=== PATIENT | female | born 1985 | race Caucasian/White ===

== ENCOUNTER 2017-12-07 10:08 | Inpatient (IN) ==
--- NOTE | 2017-12-07 11:17 | Emergency Department Note ---
Disposition Clinical Impression: Acute psychosis Disposition: Admitted As Inpatient Condition: Good Referrals: Kwaku Moore MD [Primary Care Provider] - Forms: ED Satisfaction Letter, Work/School Release Time of Disposition: 14:28 Psych HPI - General Chief Complaint: ED General Medical Stated Complaint: Possible Withdrawal Time Seen by Provider: 12/07/17 10:26 Source: EMS Mode of arrival: ambulatory Limitations: no limitations Nursing Notes Reviewed: Yes Vital Signs Reviewed: Yes - History of Present Illness HPI Narrative: 32-year-old female who apparently smoked meth she thinks but she is not sure. She did that 3 days ago she has been unable to sleep she is very paranoid. He is not appeared to be able to care for herself at this time. Pt complaint: other If medical clearance, reason: psychiatric condition (Paranoid) Onset (ago): day(s) Duration: constant Improves with: none Worsens with: none Context: recent drug abuse Alleged intoxication: No Associated Psychiatric Symptoms: racing thoughts, delusions, other Associated symptoms: Reports: denies other symptoms Traumatic symptoms: other Treatments prior to arrival: none - Related Data Previous Rx's Medication Instructions Recorded Azithromycin [Azithromycin 6-Tab 250 mg PO DAILY 5 Days tab 02/12/16 Pack] Fluticasone Propionate Nasal 2 spray NS DAILY 7 Days bottle 02/12/16 [Flonase] GuaiFENesin/Codeine [Robitussin 5 ml PO Q6HR PRN #120 ml 02/12/16 w/Codeine] Naproxen [Naprosyn] 500 mg PO BID 3 Days tablet 02/12/16 Azithromycin [Azithromycin 6-Tab 250 mg PO PER PKG DI #6 tab 08/01/16 Pack] Fluticasone Propionate Nasal 2 spray NS DAILY #1 bottle 08/01/16 [Flonase] cephALEXin [Keflex] 500 mg PO QID #28 capsule 04/23/17 Azithromycin [Azithromycin 6-Tab 250 mg PO PER PKG DI #6 tab 09/07/17 Pack] Allergies Allergy/AdvReac Type Severity Reaction Status Date / Time Penicillins [PCN] Allergy Rash Verified 02/12/16 12:13 All systems ED: reviewed and negative except as stated. Constitutional: Denies: fever, chills, weakness, weight change Eyes: Denies: eye pain, eye discharge, vision change ENT ED: Denies: ear pain, throat pain, dental pain, hearing loss, epistaxis, congestion, dysphagia Cardiovascular: Denies: chest pain, palpitations, dyspnea on exertion, edema, syncope Respiratory: Denies: cough, dyspnea, wheezes, hemoptysis, stridor Gastrointestinal: Denies: abdominal pain, nausea, vomiting, diarrhea, constipation, hematemesis, melena, hematochezia Genitourinary: Denies: dysuria, frequency, hematuria, discharge Musculoskeletal: Denies: back pain, neck pain, arthralgia, myalgia Integumentary: Denies: rash, abrasion, lesions Neurological: Denies: headache, weakness, numbness, paresthesias, confusion, abnormal gait, vertigo Psychiatric: Denies: anxiety, depression, suicidal thoughts, homicidal thoughts , auditory hallucinations, visual hallucinations Endocrine: Denies: fatigue Hematological/Lymphatic: Denies: easy bleeding, easy bruising Allergic/Immunologic: Denies: facial swelling, urticaria Past Medical History - Past Medical History Medical history: Reports: no medical history Psychiatric history: Reports: anxiety, panic disorder - Social History Smoking Status: Former smoker Smokeless Tobacco Status: No Alcohol use: Reports: rarely Drug use: Reports: methamphetamine Physical Exam - General Limitations: altered mental status General appearance: alert, in no apparent distress - Head Head exam: atraumatic, normocephalic, normal inspection - Eye Eye exam: Present: normal appearance, PERRL, EOMI - ENT ENT exam: normal exam, normal oropharynx, mucous membranes moist - Neck Neck exam: Present: normal inspection, full ROM, trachea midline - Chest Chest inspection: Present: normal inspection, symmetric chest wall rise - Respiratory Respiratory exam: Present: normal lung sounds bilaterally - Cardiovascular Cardiovascular exam: Present: regular rate, normal rhythm, normal heart sounds - Abdominal Exam Abdominal exam: Present: soft, Non-Tender. Absent: tenderness, distention, guarding, rebound, rigidity - Extremities Exam Extremities exam: Present: normal inspection, full ROM. Absent: tenderness, pedal edema - Expanded Lower Extremity Exam Neurovascular/Tendon exam: Absent: motor deficit, sensory deficit, tendon deficit Gait: observed and normal - Back Exam Back exam: Present: normal inspection, full ROM. Absent: tenderness - Neurological Exam Neurological exam: Present: alert, oriented X3 - Psychiatric Psychiatric exam: Present: agitated, anxious, other (Paranoid) - Skin Skin exam: Present: warm, dry, intact, normal color Course - Consultations Consultation #1: The patient will be admitted per1A Time: 14:28 Vital Signs Temperature 98.0 F 12/07/17 10:09 Pulse Rate 89 12/07/17 10:09 Respiratory Rate 20 12/07/17 10:09 Blood Pressure 135/94 12/07/17 10:09 O2 Sat by Pulse Oximetry 97 12/07/17 10:09 Temperature 98.0 F 12/07/17 10:09 Pulse Rate 89 12/07/17 10:09 Respiratory Rate 20 12/07/17 10:09 Blood Pressure 135/94 12/07/17 10:09 O2 Sat by Pulse Oximetry 97 12/07/17 10:09 Oxygen Delivery Oxygen Delivery Room Air Psych - Lab Data Result diagrams: 12/07/17 11:37 12/07/17 11:37 Lab Results 12/07/17 12/07/17 12/07/17 Range/Units 11:17 11:17 11:17 WBC (4.3-11.1) K/mcL RBC (3.82-4.97) M/mcL Hgb (11.5-15.4) g/dL Hct (35.3-44.9) % MCV (83.0-100.0) fL MCH (28.0-33.3) pg MCHC (31.6-35.5) g/dL RDW (11.5-14.5) % Plt Count (140-400) K/mcL MPV (9.4-12.4) fL Immature Gran % (0-4) % Seg Neutrophils % % Lymphocytes % % Monocytes % % Eosinophils % % Basophils % % Neutrophils # (1.6-8.9) K/mcL Lymphocytes # (0.6-4.6) K/mcL Monocytes # (0.0-1.3) K/mcL Eosinophils # (0.0-0.6) K/mcL Basophils # (0.0-0.2) K/mcL Sodium (136-145) mEq/L Potassium (3.5-5.1) mEq/L Chloride (98-107) mEq/L Carbon Dioxide (23-29) mEq/L BUN (6-20) mg/dL Creatinine (0.60-1.20) mg/dL Est GFR ( Amer) (> 60) Est GFR (Non-Af Amer) (> 60) BUN/Creatinine Ratio (6-26) Glucose (70-105) mg/dL Calculated Osmolality (280-300) Calcium (8.6-10.3) mg/dL Ur Specimen Adequacy See below A Urine Color Yellow (Yellow) Urine Clarity Cloudy A (Clear) Urine pH 6.5 (5.0-8.0) pH Units Ur Specific [place] 1.010 (1.010-1.025) Urine Protein Negative (Neg-Trace) mg/dL Urine Glucose (UA) Normal (Normal) mg/dL Urine Ketones Negative (Negative) mg/dL Urine Blood Small H (Negative) Urine Nitrite Negative (Negative) Urine Bilirubin Negative (Negative) Urine Urobilinogen Normal (Normal) mg/dL Ur Leukocyte Esterase Large H (Negative) Urine Microscopic RBC 0-3 (0-3) per hpf Urine Microscopic WBC 15-30 H (0-3) per hpf Ur Squamous Epith Cells Moderate H (None-Few) per lpf Urine Bacteria Many H (None-Few) per hpf Urine Test Negative (Negative) Salicylates (15.0-30.0) mg/dL Urine Opiates Screen Negative (Wucdkq=466) ng/mL Acetaminophen (10-30) mcg/mL Ur Barbiturates Screen Negative (Hvpecw=507) ng/mL Ur Phencyclidine Scrn Negative (Cutoff=25) ng/mL Ur Amphetamines Screen Negative (Uelnrv=0752) ng/mL U Benzodiazepines Scrn Negative (Pdowry=274) ng/mL Urine Cocaine Screen Negative (Cutoff= 300) ng/mL U Marijuana (THC) Screen Negative (Cutoff = 50) ng/mL Ethyl Alcohol (0-10) mg/dL 18 12/07/17 Range/Units 11:37 11:37 WBC 8.2 (4.3-11.1) K/mcL RBC 5.04 H (3.82-4.97) M/mcL Hgb 14.8 (11.5-15.4) g/dL Hct 42.4 (35.3-44.9) % MCV 84.1 (83.0-100.0) fL MCH 29.4 (28.0-33.3) pg MCHC 34.9 (31.6-35.5) g/dL RDW 12.3 (11.5-14.5) % Plt Count 309 (140-400) K/mcL MPV 10.9 (9.4-12.4) fL Immature Gran % 0.2 (0-4) % Seg Neutrophils % 68.7 % Lymphocytes % 22.9 % Monocytes % 6.7 % Eosinophils % 1.1 % Basophils % 0.4 % Neutrophils # 5.6 (1.6-8.9) K/mcL Lymphocytes # 1.9 (0.6-4.6) K/mcL Monocytes # 0.6 (0.0-1.3) K/mcL Eosinophils # 0.1 (0.0-0.6) K/mcL Basophils # 0.0 (0.0-0.2) K/mcL Sodium 136 (136-145) mEq/L Potassium 3.2 L (3.5-5.1) mEq/L Chloride 105 (98-107) mEq/L Carbon Dioxide 21 L (23-29) mEq/L BUN 8 (6-20) mg/dL Creatinine 0.85 (0.60-1.20) mg/dL Est GFR ( Amer) > 60 (> 60) Est GFR (Non-Af Amer) > 60 (> 60) BUN/Creatinine Ratio 9 (6-26) Glucose 92 (70-105) mg/dL Calculated Osmolality 280 (280-300) Calcium 9.9 (8.6-10.3) mg/dL Ur Specimen Adequacy Urine Color (Yellow) Urine Clarity (Clear) Urine pH (5.0-8.0) pH Units Ur Specific [place] (1.010-1.025) Urine Protein (Neg-Trace) mg/dL Urine Glucose (UA) (Normal) mg/dL Urine Ketones (Negative) mg/dL Urine Blood (Negative) Urine Nitrite (Negative) Urine Bilirubin (Negative) Urine Urobilinogen (Normal) mg/dL Ur Leukocyte Esterase (Negative) Urine Microscopic RBC (0-3) per hpf Urine Microscopic WBC (0-3) per hpf Ur Squamous Epith Cells (None-Few) per lpf Urine Bacteria (None-Few) per hpf Urine Test (Negative) Salicylates < 5.0 L (15.0-30.0) mg/dL Urine Opiates Screen (Dyorgf=145) ng/mL Acetaminophen < 1.0 L (10-30) mcg/mL Ur Barbiturates Screen (Zawrqo=666) ng/mL Ur Phencyclidine Scrn (Cutoff=25) ng/mL Ur Amphetamines Screen (Qlqidv=3036) ng/mL U Benzodiazepines Scrn (Jfahza=204) ng/mL Urine Cocaine Screen (Cutoff= 300) ng/mL U Marijuana (THC) Screen (Cutoff = 50) ng/mL Ethyl Alcohol < 10 (0-10) mg/dL Psychiatric Medical Clearance - Medical Clearance Checklist Medical History: Upper respiratory infection (Acute) Anxiety (Acute) Acute streptococcal pharyngitis (Inactive) Anxiety attack (Inactive) Fever (Inactive) GERD (gastroesophageal reflux disease) (Inactive) Lymphadenopathy (Inactive) Sinusitis (Inactive) Sinusitis (Inactive) Stress and adjustment reaction (Inactive) No Social History Section defined Current Vitals: Last Vital Signs Temp 98.0 F 12/07/17 10:09 Pulse 89 12/07/17 10:09 Resp 20 12/07/17 10:09 BP 135/94 12/07/17 10:09 Pulse Ox 97 12/07/17 10:09 Psychiatric Lab Panel: Drug Levels and Toxicity 12/07/17 12/07/17 11:17 11:37 Urine Opiates Screen Negative Acetaminophen < 1.0 L Ur Barbiturates Screen Negative Ur Phencyclidine Scrn Negative Ur Amphetamines Screen Negative U Benzodiazepines Scrn Negative Urine Cocaine Screen Negative U Marijuana (THC) Screen Negative Ethyl Alcohol < 10 Abnormal Labs: Abnormal lab results RBC 5.04 M/mcL (3.82-4.97) H 12/07/17 11:37 Potassium 3.2 mEq/L (3.5-5.1) L 12/07/17 11:37 Carbon Dioxide 21 mEq/L (23-29) L 12/07/17 11:37 Ur Specimen Adequacy See below A 12/07/17 11:17 Urine Clarity Cloudy (Clear) A 12/07/17 11:17 Urine Blood Small (Negative) H 12/07/17 11:17 Ur Leukocyte Esterase Large (Negative) H 12/07/17 11:17 Urine Microscopic WBC 15-30 per hpf (0-3) H 12/07/17 11:17 Ur Squamous Epith Cells Moderate per lpf (None-Few) H 12/07/17 11:17 Urine Bacteria Many per hpf (None-Few) H 12/07/17 11:17 Salicylates < 5.0 mg/dL (15.0-30.0) L 12/07/17 11:37 Acetaminophen < 1.0 mcg/mL (10-30) L 12/07/17 11:37 Statement of Medical Clearance: I have evaluated the patient, reviewed diagnostic information, and certify that the patient's medical condition is sufficiently stable that transfer to the psychiatric unit does not pose a significant risk of deterioration.
[2017-12-07 11:44] LABS: Bilirubin,Urine Negative (Negative); Blood,Urine Small (Negative); Clarity,Urine Cloudy (Clear); Color,Urine Yellow (Yellow); Glucose,Urine (UA) Normal (Normal); Ketones,Urine Negative (Negative); Leukocyte Esterase,Urine Large (Negative); Nitrite,Urine Negative (Negative); PH,Urine 6.5 pH Units (5.0-8.0); Protein,Urine Negative (Neg-Trace); Urobilinogen,Urine Normal (Normal)
[2017-12-07 11:46] LABS: Amphetamine Screen,Urine Negative ng/mL (Cutoff=1000); Barbiturate Screen,Urine Negative ng/mL (Cutoff=200); Benzodiazepines Screen,Urine Negative ng/mL (Cutoff=200); Cannabinoid Screen,Urine Negative ng/mL (Cutoff = 50); Cocaine Screen,Urine Negative ng/mL (Cutoff= 300); Opiate Screen,Urine Negative ng/mL (Cutoff=300); Phencyclidine Screen,Urine Negative ng/mL (Cutoff=25)
[2017-12-07 11:50] LABS: Basophils % 0.4 %; Eosinophils # 0.1 K/mcL (0.0-0.6); Eosinophils % 1.1 %; Hematocrit 42.4 % (35.3-44.9); Hemoglobin 14.8 g/dL (11.5-15.4); Immature Granulocytes % 0.2 % (0-4); Lymphocytes # 1.9 K/mcL (0.6-4.6); Lymphocytes % 22.9 %; Mean Corpuscular HGB Conc 34.9 g/dL (31.6-35.5); Mean Corpuscular Hemoglobin 29.4 pg (28.0-33.3); Mean Corpuscular Volume 84.1 fL (83.0-100.0); Mean Platelet Volume 10.9 fL (9.4-12.4); Monocytes # 0.6 K/mcL (0.0-1.3); Monocytes % 6.7 %; Neutrophils # 5.6 K/mcL (1.6-8.9); Platelet Count 309 K/mcL (140-400); Red Blood Count 5.04 M/mcL (3.82-4.97); Red Cell Distribution Width 12.3 % (11.5-14.5); Segmented Neutrophils % 68.7 %
[2017-12-07 11:59] LABS: RBC,Urine 0-3 per hpf (0-3); WBC,Urine 15-30 per hpf (0-3)
[2017-12-07 12:00] LABS: Bacteria,Urine Many per hpf (None-Few); Squamous Epithelial Cell,Urine Moderate per lpf (None-Few)
[2017-12-07 12:06] LABS: Acetaminophen < 1.0 mcg/mL (10-30); Ethanol < 10 mg/dL (0-10); Salicylate < 5.0 mg/dL (15.0-30.0)
[2017-12-07 12:09] LABS: BUN/Creatinine Ratio 9 (6-26); Blood Urea Nitrogen 8 mg/dL (6-20); Calcium 9.9 mg/dL (8.6-10.3); Carbon Dioxide 21 mEq/L (23-29); Chloride 105 mEq/L (98-107); Glucose 92 mg/dL (70-105); Osmolality,Calculated 280 (280-300); Potassium 3.2 mEq/L (3.5-5.1); Sodium 136 mEq/L (136-145); eGFR For African Americans > 60 (> 60); eGFR For Non-African Americans > 60 (> 60)
[2017-12-07] MEDS ORDERED: *HR* LORazepam 1 MG TABLET PO PRN (15:36)
[2017-12-07] MEDS ORDERED: Mag Hydrox/Al Hydrox/Simeth 30 ML UDC PO PRN (15:36)
[2017-12-07] MEDS ORDERED: *HR* LORazepam 2 MG/ML VIAL IM PRN (15:36)
[2017-12-07] MEDS ORDERED: MOM Conc 10 ML UD.LIQ PO PRN (15:36)
[2017-12-07] MEDS ORDERED: Haloperidol Lactate 5 MG/ML VIAL IM PRN (15:36)
[2017-12-07] MEDS ORDERED: Ibuprofen 400 MG TABLET PO PRN (15:36)
[2017-12-07] MEDS: hydrOXYzine pamoate 25 MG CAPSULE PO PRN (22:00)
[2017-12-07] MEDS: traZODone 50 MG TABLET PO PRN (22:00)
--- NOTE | 2017-12-08 12:21 | Psychiatry History & Physical ---
Date of Encounter: 12/08/17 Time of Encounter: 12:17 History of Present Illness Patient Stated Chief Complaint: psychosis Medicare Admission Attestation: For traditional Medicare patients the provided hospital inpatient services are reasonable and necessary and in the case of services not specified as inpatient -only under 42 CFR 419.22 (n), that they are appropriately provided as inpatient services in accordance 42 CFR 412.3. For Critical Access Hospital the patient may reasonably be expected to be discharged or transferred to a hospital within 96 hours after admission to the Critical Access Hospital. Admitted From: Home Plans for Post Hospital Care: Home History of Present Illness: Ms. Espinoza is a 32 year old female who was admitted secondary to psychosis. Client states she did Meth for the first time on Wednesday and has been unable to sleep or think clearly since. Client does seem distressed. Tearful. States she has never felt like this before. Denies SI/HI/AH/VH but reports her mind is playing tricks on her. Delayed processing. Delayed responses to questions. Has a mental health history of RORY and PTSD from ten years ago. Managed as an outpatient but became addicted to Heroin and stopped treatment. No psych treatment in several years. Client states she is now off the Heroin. Does not know why she did the Meth. Client reports no physical health problems or medication allergies other than PCN. Will start Seroquel to help with psychosis and to help with sleep. Past Med Surg Social Fam HX - Past Medical History Medical history: no medical history - Past Psychiatric History Psychiatric history: Reports: anxiety, depression Family psychiatric history: Unknown Family History of Suicide: Unknown - Past Surgical History Surgical History: no surgical history - Social History Smoking Status: Former smoker Smokeless Tobacco Status: No Alcohol use: rarely Drug use: methamphetamine Medications & Allergies Citalopram [CeleXA] 20 mg PO DAILY 12/07/17 [History] 3 Allergy/AdvReac Type Severity Reaction Status Date / Time Penicillins [PCN] Allergy Rash Verified 02/12/16 12:13 Review of Systems Constitutional: Denies: fever, chills, weakness, weight change Eyes: Denies: eye pain, vision change Ears, Nose, Throat: Denies: ear pain, throat pain, dental pain, hearing loss, congestion Cardiovascular: Denies: chest pain, palpitations, dyspnea on exertion Respiratory: Denies: cough, dyspnea, wheezes Gastrointestinal: Denies: abdominal pain, nausea, vomiting, diarrhea, constipation Genitourinary male: Denies: urgency, dysuria, frequency, genital lesions Genitourinary female: Denies: urgency, dysuria, frequency, abnormal menses, dyspareunia Musculoskeletal: Denies: joint swelling, joint pain Integumentary: Denies: rash, lesions, pruritus Neurological: Denies: headache, weakness, numbness, memory loss Endocrine: Denies: fatigue, heat or cold intolerance Hematologic/Lymphatic: Denies: easy bruising, lymphadenopathy Allergic/Immunologic: Denies: urticaria, itchy eyes Mental Status Exam Patient orientation: Yes Person, Yes Time, Yes Place Level of alertness: Alert Patient appearance: Unkempt, Disheveled Behavior: anxious, tearful Psychomotor activity: Normal Eye contact: Minimal Contact Mood description: Anxious Affect description: congruent with mood, tearful Speech pattern: Delayed Speech volume: Normal Thought process: Thought Blocking Thought content: No Suicidal ideation, No Homicidal ideation, Yes Paranoid delusion Perceptual disturbances: Yes Reacting to internal stimuli, No Auditory hallucinations, No Visual hallucinations Attention span: Unable to Focus, Unable to Sustain Attention Memory description: Grossly Intact Patient reliability: Questionable Historian Intelligence estimate: Average Judgment: Limited Insight: Partial Exam - HEENT Head exam IM: Present: atraumatic Eye exam IM: Present: EOMI ENT exam IM: Present: mucous membranes moist - Neurological Neurological exam IM: Present: alert, oriented X3 - Respiratory Respiratory exam IM: Present: CTAB - GI/Abdominal GI/Abdominal exam IM: Present: normal bowel sounds - Extremities Extremities exam IM: Present: full ROM - Skin Skin exam IM: Present: normal color Results - Vital Signs Vital signs: Temp Pulse Resp BP Pulse Ox 97.4 F L 61 18 113/77 97 12/07/17 21:00 12/07/17 21:00 12/07/17 21:00 12/07/17 21:00 12/07/17 10:09 - Labs Labs: Laboratory Last Values WBC 8.2 K/mcL (4.3-11.1) 12/07/17 11:37 RBC 5.04 M/mcL (3.82-4.97) H 12/07/17 11:37 Hgb 14.8 g/dL (11.5-15.4) 12/07/17 11:37 Hct 42.4 % (35.3-44.9) 12/07/17 11:37 MCV 84.1 fL (83.0-100.0) 12/07/17 11:37 MCH 29.4 pg (28.0-33.3) 12/07/17 11:37 MCHC 34.9 g/dL (31.6-35.5) 12/07/17 11:37 RDW 12.3 % (11.5-14.5) 12/07/17 11:37 Plt Count 309 K/mcL (140-400) 12/07/17 11:37 MPV 10.9 fL (9.4-12.4) 12/07/17 11:37 Immature Gran % 0.2 % (0-4) 12/07/17 11:37 Seg Neutrophils % 68.7 % 12/07/17 11:37 Lymphocytes % 22.9 % 12/07/17 11:37 Monocytes % 6.7 % 12/07/17 11:37 Eosinophils % 1.1 % 12/07/17 11:37 Basophils % 0.4 % 12/07/17 11:37 Neutrophils # 5.6 K/mcL (1.6-8.9) 12/07/17 11:37 Lymphocytes # 1.9 K/mcL (0.6-4.6) 12/07/17 11:37 Monocytes # 0.6 K/mcL (0.0-1.3) 12/07/17 11:37 Eosinophils # 0.1 K/mcL (0.0-0.6) 12/07/17 11:37 Basophils # 0.0 K/mcL (0.0-0.2) 12/07/17 11:37 Sodium 136 mEq/L (136-145) 12/07/17 11:37 Potassium 3.2 mEq/L (3.5-5.1) L 12/07/17 11:37 Chloride 105 mEq/L (98-107) 12/07/17 11:37 Carbon Dioxide 21 mEq/L (23-29) L 12/07/17 11:37 BUN 8 mg/dL (6-20) 12/07/17 11:37 Creatinine 0.85 mg/dL (0.60-1.20) 12/07/17 11:37 Est GFR ( Amer) > 60 (> 60) 12/07/17 11:37 Est GFR (Non-Af Amer) > 60 (> 60) 12/07/17 11:37 BUN/Creatinine Ratio 9 (6-26) 12/07/17 11:37 Glucose 92 mg/dL (70-105) 12/07/17 11:37 Calculated Osmolality 280 (280-300) 12/07/17 11:37 Calcium 9.9 mg/dL (8.6-10.3) 12/07/17 11:37 Ur Specimen Adequacy See below A 12/07/17 11:17 Urine Color Yellow (Yellow) 12/07/17 11:17 Urine Clarity Cloudy (Clear) A 12/07/17 11:17 Urine pH 6.5 pH Units (5.0-8.0) 12/07/17 11:17 Ur Specific [place] 1.010 (1.010-1.025) 12/07/17 11:17 Urine Protein Negative mg/dL (Neg-Trace) 12/07/17 11:17 Urine Glucose (UA) Normal mg/dL (Normal) 12/07/17 11:17 Urine Ketones Negative mg/dL (Negative) 12/07/17 11:17 Urine Blood Small (Negative) H 12/07/17 11:17 Urine Nitrite Negative (Negative) 12/07/17 11:17 Urine Bilirubin Negative (Negative) 12/07/17 11:17 Urine Urobilinogen Normal mg/dL (Normal) 12/07/17 11:17 Ur Leukocyte Esterase Large (Negative) H 12/07/17 11:17 Urine Microscopic RBC 0-3 per hpf (0-3) 12/07/17 11:17 Urine Microscopic WBC 15-30 per hpf (0-3) H 12/07/17 11:17 Ur Squamous Epith Cells Moderate per lpf (None-Few) H 12/07/17 11:17 Urine Bacteria Many per hpf (None-Few) H 12/07/17 11:17 Urine Test Negative (Negative) 12/07/17 11:17 Salicylates < 5.0 mg/dL (15.0-30.0) L 12/07/17 11:37 Urine Opiates Screen Negative ng/mL (Bnunlv=703) 12/07/17 11:17 Acetaminophen < 1.0 mcg/mL (10-30) L 12/07/17 11:37 Ur Barbiturates Screen Negative ng/mL (Evgouo=103) 12/07/17 11:17 Ur Phencyclidine Scrn Negative ng/mL (Cutoff=25) 12/07/17 11:17 Ur Amphetamines Screen Negative ng/mL (Chmgih=0511) 12/07/17 11:17 U Benzodiazepines Scrn Negative ng/mL (Rsopqe=858) 12/07/17 11:17 Urine Cocaine Screen Negative ng/mL (Cutoff= 300) 12/07/17 11:17 U Marijuana (THC) Screen Negative ng/mL (Cutoff = 50) 12/07/17 11:17 Ethyl Alcohol < 10 mg/dL (0-10) 12/07/17 11:37 Assessment and Plan (1) Acute psychosis Current visit: Yes Status: Acute Plan: Admit inpatient for safety and stabilization, Close observation, Suicide Precautions per unit protocol, Encourage participation in unit milieu, Group Therapy, Monitor sleep, Monitor appetite Risks, benefits, side effects, alternatives discussed w/pt: Yes Patient agreeable to treatment: Yes Plans for Post Hospital Care: Home Estimated Length of Stay (Days): 4
[2017-12-08] MEDS: hydrOXYzine pamoate 25 MG CAPSULE PO PRN (18:38)
[2017-12-08] MEDS: traZODone 50 MG TABLET PO PRN (22:59)
[2017-12-09] MEDS: hydrOXYzine pamoate 25 MG CAPSULE PO PRN ×2 (14:57→22:00)
--- NOTE | 2017-12-09 16:32 | Psychiatry Progress Note ---
Date of Encounter: 12/09/17 Time of Encounter: 16:27 Subjective Interval history: Client is very tearful today. Wanting to leave. Still not processing things well. Her thoughts are clearer and there are less delays in her speech. However, there is still a fair amount of paranoia. Client does not believe staff are telling her the truth. Did sleep some with the Seroquel. Suspect she may have an underlying Bipolar Disorder. It is possible that her presentation is solely related to the Meth use but suspect she is experiencing some rusty. Past diagnoses of anxiety could have easily been missed hypomanic episodes. Father is supportive. Client has a safe place to go with him and her kids once she clears. Father did verify that client was addicted to Heroin but has been clean for a long time. Will increase Seroquel tonight. Possible client can be discharged tomorrow if she continues to improve. Review of Systems Constitutional: Denies: fever, chills, weakness, weight change Eyes: Denies: eye pain, vision change Ears, Nose, Throat: Denies: ear pain, throat pain, dental pain, hearing loss, congestion Cardiovascular: Denies: chest pain, palpitations, dyspnea on exertion Respiratory: Denies: cough, dyspnea, wheezes Gastrointestinal: Denies: abdominal pain, nausea, vomiting, diarrhea, constipation Musculoskeletal: Denies: joint swelling, joint pain Neurological: Denies: headache, weakness, numbness, memory loss Objective: Exam Patient orientation: Yes Person, Yes Time, Yes Place Level of alertness: Alert Patient appearance: Disheveled Behavior: anxious, tearful, agitated Psychomotor activity: Normal Eye contact: Minimal Contact Mood description: Anxious Affect description: labile Speech pattern: Normal rate, Normal rhythm, Normal tone Speech volume: Normal Thought process: Perseveration Thought content: No Suicidal ideation, No Homicidal ideation, Yes Paranoid delusion Perceptual disturbances: No Auditory hallucinations, No Visual hallucinations Judgment: Limited Insight: Minimal Results - Vital Signs Vital Signs: Temp Pulse Resp BP Pulse Ox 97.9 F 109 16 119/77 97 12/09/17 09:00 12/09/17 09:00 12/09/17 09:00 12/09/17 09:00 12/07/17 10:09 Assessment and Plan (1) Acute psychosis Current visit: Yes Status: Acute Plan: Continue hospitalization, Close observation, Suicide Precautions per unit protocol, Encourage participation in unit milieu, Group Therapy, Monitor sleep, Monitor appetite Risks, benefits, side effects, alternatives discussed w/pt: Yes Patient agreeable to treatment: Yes Consult Discharge Plan - Plan Referrals: NONE,PCP [Primary Care Provider] -
--- NOTE | 2017-12-09 20:23 | Electrocardiograph Report ---
[place] [address] Test Date: 2017-12-07 Pat Name: Melba Espinoza Department: 103 Room: 1A54 Gender: F Minute Clerk: : [id number] Requested By: Elsie Reese Order Number: [id number] Reading MD: Fátima Payton Measurements Intervals [place] Rate: 61 P: 44 [place]: 140 QRS: -8 QRSD: 116 T: 11 QT: 367 QTc: 370 Interpretive Statements SINUS RHYTHM INCOMPLETE RIGHT BUNDLE BRANCH BLOCK [90+ ms QRS DURATION, TERMINAL R IN V1/V2, 40+ ms S IN I/aVL/V4/V5/V6] Electronically Signed On 12-09-2017 20:21:50 EST by Fátima Payton
[2017-12-10 10:42] VITALS: BP 123/93
--- NOTE | 2017-12-10 12:07 | Discharge Summary ---
Date of Encounter: 12/10/17 Time of Encounter: 12:05 Diagnosis - Discharge Diagnosis (1) Acute psychosis Status: Acute Medications - Discharge Medications Prescriptions: Quetiapine Fumarate [Seroquel] 200 mg PO HS #60 tablet Citalopram [CeleXA] 20 mg PO DAILY 12/07/17 [History] Quetiapine Fumarate [Seroquel] 200 mg PO HS #60 tablet 12/10/17 [Rx] 3 Allergy/AdvReac Type Severity Reaction Status Date / Time Penicillins [PCN] Allergy Rash Verified 02/12/16 12:13 Provider Date of admission: 12/08/17 12:59 Primary care physician: PCP NONE Discharging clinician: Zainab Breaux Assessment and Plan - Patient/Caregiver Discharge Instructions Activity: resume usual activities as tolerated Diet: regular diet - Follow up Plan Follow up with: Kei Duggan [Outside] - 12/27/17 2:00 pm (The above appointment is with Melba. When you come to your first appointment, you will be completing paperwork, meeting with a counselor, and developing a treatment plan. You will receive follow- up appointments for on-going services, which could include community support, mental health and substance abuse counseling, groups/partial hospitalization programming and medication assisted treatment. Please note, you will receive a new patient packet in the mail. Please complete that to the best of your ability and bring it with you to your first appointment. You will also need to bring the following to your first appointment as well: 1) proof of household income (two consecutive pay stubs, social security award letter, bank statement, statement letter from [facility], child support statement, IRS 1040 or W2 form, or a statement from the person who financially supports you stating they help provide for your basic needs), 2 ) proof of residency (drivers license, a piece of mail showing your address, a statement from person you live with verifying you live at their address), 3) your social security card, 4) photo ID, 5) your insurance card (if you have commercial insurance you must call to obtain a prior authorization number before you arrive to your first appointment) and 6) if you do not have insurance but have applied for Medicaid, please bring verification you have applied. The above appointment(s) reflects first availability. You may contact the office regularly to check for cancellations that may allow you to be seen sooner.) Julianna Rogers [Advanced Practice Nurse] - 12/14/17 4:00 pm (The above appointment is with Julianna Rogers CNP, at [facility]. This appointment is to establish you with a primary care provider. Your needs for medication and/or Vivitrol will be assessed and treated as indicated as well. Please arrive 15 minutes early to complete paperwork. Please bring your insurance card, photo ID and list of current medications to your first appointment. The above appointment(s) reflects first availability. You may contact the office regularly to check for cancellations that may allow you to be seen sooner.) Functional capacity at discharge: independent ambulation Overall status at discharge: Stable Disposition: Home, Self-Care Hospital Course Hospital course: Ms. Espinoza is a 32 year old female who was admitted in a psychotic state. Client had used methamphetamines a few days prior and was not sleeping. She was started on Seroquel with good results. She was initially very anxious, tearful, labile, and confused. However, after sleeping for two nights in a row and getting a couple of doses of medications she showed significant improvement. Today she still has some anxiety but the shayy paranoia has resolved. She is pleasant and smiling. She attended a group this morning and she was really positive about the coping skills she learned. Father is supportive and client will be living with him and her two children. They came to visit her last night and had a good visit. Client is denying SI/HI/AH/VH. Looks much better. May have an underlying Bipolar Disorder but she is being linked with outpatient providers so diagnosis of Bipolar vs. strictly substance induced psychosis can be teased out over time. - Time Spent with Patient Total time spent providing and/or coordinating discharge services: Quality - Multiple Antipsychotics Patient discharged on 2 or more antipsychotic medications: No Procedures - Procedures Procedures: Medication Management, Crisis Stabilization, Supportive Therapy, Group Therapy Mental Status Exam - Mental Status Exam Patient orientation: Yes Person, Yes Time, Yes Place Level of alertness: Alert Patient appearance: Appropriate, Well Groomed Behavior: calm, cooperative Psychomotor activity: Normal Eye contact: Maintains Eye Contact Mood description: Anxious Affect description: congruent with mood Speech pattern: Normal rate, Normal rhythm, Normal tone Speech Volume: Normal Thought process: Linear, Goal Oriented Thought Content: No Suicidal ideation, No Homicidal ideation, No Overt delusions Perceptual Disturbances: No Auditory hallucinations, No Visual hallucinations Judgment: Fair Insight: Partial
== END 2017-12-10 15:00 | disposition home or self-care (01) | DRG 773 ==
LOC: 1ANU 10:08 → EMEROO 10:08 → 1ANU 15:13
PROVIDERS: ADMIT Psychiatry & Neurology Psychiatry; ATTEND Psychiatry & Neurology Psychiatry